=== PATIENT | male | born 1965 | race Caucasian/White ===

== ENCOUNTER 2018-01-29 10:24 | Emergency (ER) | payer OTHER ==
[2018-01-29] MEDS ORDERED: Sodium Chloride 0.9% 10 ML Syringe FLUSH PRN (10:46)
[2018-01-29] MEDS ORDERED: Aspirin 81 MG Tab.Chew PO ONE (10:46)
--- NOTE | 2018-01-29 10:50 | EDM.PDOC ---
ED HPI GENERAL MEDICAL PROBLEM - General Chief Complaint: Chest Pain Stated Complaint: CHEST PAIN Time Seen by Provider: 01/29/18 10:32 Source of Information: Reports: Patient History Limitations: Reports: No Limitations - History of Present Illness INITIAL COMMENTS - FREE TEXT/NARRATIVE: 52-year-old male presents for evaluation and treatment of chest pain. Patient reports the chest pain started yesterday. It has been intermittent. Describes as being primarily located in the center of his chest. No radiation to his back , neck, arms or jaw. He reports that he is belching more than normal. He denies any nausea, vomiting, shortness of breath, lightheadedness, dizziness or syncope. He is currently pain-free at this time. He tried some Prilosec without any relief. Reports about a year ago he did have a cardiac stress test. He was told that he had a previous IN at some point but his stress test was otherwise clear. He has no history himself of any cardiac issues. Reports significant family history of cardiac problems. Primary care provider is Dr. Blevins. Middle Chest Pain Score (Numeric/FACES): 2 - Related Data Allergies Allergy/AdvReac Type Severity Reaction Status Date / Time No Known Allergies Allergy Verified 01/29/18 10:32 Home Meds: Home Meds Fenofibric Acid (Choline) [Fenofibric Acid] 135 mg PO DAILY 01/29/18 [History] Hydrochlorothiazide [Microzide] 12.5 mg PO DAILY 01/29/18 [History] Losartan [Cozaar] 50 mg PO DAILY 01/29/18 [History] Metoprolol Succinate [Toprol XL] 25 mg PO DAILY 01/29/18 [History] Valsartan 160 mg PO DAILY 01/29/18 [History] atorvaSTATin [Lipitor] 20 mg PO BEDTIME 01/29/18 [History] Past Medical History Cardiovascular History: Reports: High Cholesterol, Hypertension - Past Surgical History Musculoskeletal Surgical History: Reports: Shoulder Surgery Social & Family History - Tobacco Use Smoking Status *Q: Never Smoker - Recreational Drug Use Recreational Drug Use: No ED ROS GENERAL - Review of Systems Review Of Systems: See Below Constitutional: Denies: Fever Respiratory: Denies: Shortness of Breath, Cough Cardiovascular: Reports: Chest Pain (central chest). Denies: Lightheadedness, Syncope GI/Abdominal: Reports: Other (reports increased belching). Denies: Abdominal Pain, Nausea, Vomiting Neurological: Denies: Dizziness ED EXAM, GENERAL - Physical Exam Exam: See Below Exam Limited By: No Limitations General Appearance: Alert, WD/WN, No Apparent Distress Ears: Normal External Exam Nose: Normal Inspection Throat/Mouth: Normal Inspection, Normal Lips, Normal Voice, No Airway Compromise Respiratory/Chest: No Respiratory Distress, Lungs Clear, Normal Breath Sounds Cardiovascular: Normal Peripheral Pulses, Regular Rate, Rhythm, No Murmur GI/Abdominal: Normal Bowel Sounds, Soft, Non-Tender Neurological: Alert, Oriented, Normal Cognition Psychiatric: Normal Affect, Normal Mood Skin Exam: Warm, Dry, Normal Color EKG INTERPRETATION EKG Date: 01/29/18 Time: 10:30 Rhythm: NSR Rate (Beats/Min): 58 [place]: Normal P-Wave: Present QRS: Normal ST-T: Normal QT: Prolonged (mimal Qtc 413) EKG Interpretation Comments: Consent bradycardia 58 bpm. Near Q waves in 3 and aVF, consider old inferior wall IN. She seemed minimally prolonged at a QTc of 413. No acute ischemic changes. Reviewed by myself and Dr. Mayfield. Course - Vital Signs Last Recorded V/S: Last Vital Signs Temp 97.8 F 01/29/18 10:27 Pulse 79 01/29/18 12:58 Resp 16 01/29/18 12:58 BP 153/88 H 01/29/18 10:27 Pulse Ox 98 01/29/18 12:58 - Orders/Labs/Meds Orders: Active Orders 24 hr Category Date Time Status Cardiac Monitoring [RC] . DIRECTED Care 01/29/18 10:46 Active EKG 12 Lead [EKG Documentation Completion] [RC] STAT Care 01/29/18 10:45 Active Peripheral IV Care [RC] . DIRECTED Care 01/29/18 10:46 Active Chest 1V Frontal [CR] Stat Exams 01/29/18 10:46 Taken Peripheral IV Insertion Adult [OM.PC] Routine Oth 01/29/18 10:45 Ordered Labs: Laboratory Tests 01/29/18 01/29/18 Range/Units 10:55 10:55 WBC 5.27 (4.23-9.07) K/mm3 RBC 5.34 (4.63-6.08) M/mm3 Hgb 16.8 (13.7-17.5) gm/L Hct 47.1 (40.1-51.0) % MCV 88.2 (79.0-92.2) fl MCH 31.5 (25.7-32.2) pg MCHC 35.7 H (32.2-35.5) g/dl RDW Std Deviation 41.7 (35.1-43.9) fL Plt Count 214 (163-337) K/mm3 MPV 10.2 (9.4-12.3) fl Neut % (Auto) 57.8 (34.0-67.9) % Lymph % (Auto) 30.6 (21.8-53.1) % [place] % (Auto) 8.0 (5.3-12.2) % Eos % (Auto) 2.8 (0.8-7.0) Baso % (Auto) 0.6 (0.1-1.2) % Neut # (Auto) 3.05 (1.78-5.38) K/mm3 Lymph # (Auto) 1.61 (1.32-3.57) K/mm3 [place] # (Auto) 0.42 (0.30-0.82) K/mm3 Eos # (Auto) 0.15 (0.04-0.54) K/mm3 Baso # (Auto) 0.03 (0.01-0.08) K/mm3 Sodium 140 (136-145) mEq/L Potassium 3.8 (3.5-5.1) mEq/L Chloride 103 (98-107) mEq/L Carbon Dioxide 27 (21-32) mEq/L Anion Gap 13.8 (5-15) BUN 17 (7-18) mg/dL Creatinine 1.3 (0.7-1.3) mg/dL Est Cr Clr Drug Dosing 64.96 mL/min Estimated GFR (MDRD) 58 (>60) mL/min BUN/Creatinine Ratio 13.1 L (14-18) Glucose 89 (74-106) mg/dL Calcium 9.4 (8.5-10.1) mg/dL Total Bilirubin 0.8 (0.2-1.0) mg/dL AST 21 (15-37) U/L ALT 38 (16-63) U/L Alkaline Phosphatase 50 (46-116) U/L CK-MB (CK-2) 2.0 (0-3.6) ng/ml Troponin I < 0.017 (0.00-0.056) ng/mL C-Reactive Protein < 0.2 (<1.0) mg/dL Total Protein 7.5 (6.4-8.2) g/dl Albumin 4.3 (3.4-5.0) g/dl Globulin 3.2 gm/dL Albumin/Globulin Ratio 1.3 (1-2) Lipase 176 (73-393) U/L Meds: Medications Discontinued Medications Generic Name Dose Route Start Last Admin Trade Name Freq PRN Reason Stop Dose Admin Aspirin 324 mg 01/29/18 10:46 01/29/18 10:58 Aspirin PO 01/29/18 10:47 324 mg ONETIME ONE Administration Sodium Chloride 10 ml 01/29/18 10:46 01/29/18 10:59 Saline Flush FLUSH 10 ml ASDIRECTED PRN Administration Keep Vein Open - Radiology Interpretation Free Text/Narrative:: Chest x-ray shows no acute intrathoracic process. - Re-Assessments/Exams Free Text/Narrative Re-Assessment/Exam: 01/29/18 12:43 I reviewed the labs, ekg and imaging with the patient. Agree that this is likely reflux. Offered patient medication such as GI cocktail but he feels comfortable going home at this point. Will discharge home. Discharge instructions as documented. Departure - Departure Time of Disposition: 12:47 Disposition: Home, Self-Care 01 Condition: Good Clinical Impression: GERD (gastroesophageal reflux disease) Instructions: Gastroesophageal Reflux Disease, Adult Referrals: Cahi Perez MD [Primary Care Provider] - Forms: ED Department Discharge Additional Instructions: Recommend continuing the Prilosec. may also try something like Zantac, Tums or Rolaids for more immediate relief. Recommend avoiding spicy foods and alcohol. Follow-up with her primary care provider within 2 weeks for recheck of your symptoms. Please return to the ER if your symptoms change or worsen. - My Orders Last 24 Hours: My Active Orders 01/29/18 10:45 EKG 12 Lead [EKG Documentation Completion] [RC] STAT Peripheral IV Insertion Adult [OM.PC] Routine 01/29/18 10:46 Cardiac Monitoring [RC] . DIRECTED Peripheral IV Care [RC] . DIRECTED Chest 1V Frontal [CR] Stat - Assessment/Plan Last 24 Hours: My Active Orders 01/29/18 10:45 EKG 12 Lead [EKG Documentation Completion] [RC] STAT Peripheral IV Insertion Adult [OM.PC] Routine 01/29/18 10:46 Cardiac Monitoring [RC] . DIRECTED Peripheral IV Care [RC] . DIRECTED Chest 1V Frontal [CR] Stat
--- NOTE | 2018-02-01 08:36 | CR ---
Chest: Portable view of the chest was obtained. Comparison: No prior chest x-ray. Heart size and mediastinum are normal. Lungs are clear. Bony structures are grossly intact. Previous right shoulder surgery is seen. Impression: 1. Nothing acute is seen on portable chest x-ray. Diagnostic code #1
== END 2018-01-29 12:59 | disposition home or self-care (01) ==
LOC: JD.ED 10:24
DX: K21.9 Gastro-esophageal reflux disease without esophagitis (principal); I10 Essential (primary) hypertension; E78.00 Pure hypercholesterolemia, unspecified; Z79.899 Other long term (current) drug therapy
CPT/HCPCS: 36415; 71045; 80053; 82553; 83690; 84484; 85025; 86140; 93005; 99285; A9270; J7050; 93010; 99284

== ENCOUNTER 2020-01-23 10:01 | Emergency (ER) | payer BC, OTHER ==
[2020-01-23] MEDS ORDERED: Ondansetron 4 MG/2 ML SDV IVPUSH ONE (10:29)
[2020-01-23] MEDS ORDERED: Sodium Chloride 0.9% 10 ML Syringe FLUSH PRN (10:29)
[2020-01-23] MEDS ORDERED: HYDROmorphone 0.5 MG/0.5 ML Syringe IVPUSH ONE (10:30)
[2020-01-23] MEDS ORDERED: Sodium Chloride 0.9% 1,000 ML IV SCH (10:30)
[2020-01-23] MEDS ORDERED: Ketorolac 30 MG/ML SDV IVPUSH ONE (10:30)
--- NOTE | 2020-01-23 11:01 | EDM.PDOC ---
ED HPI GENERAL MEDICAL PROBLEM - General Chief Complaint: Flank Pain Stated Complaint: BACK PAIN Time Seen by Provider: 01/23/20 10:19 Source of Information: Reports: Patient History Limitations: Reports: No Limitations - History of Present Illness INITIAL COMMENTS - FREE TEXT/NARRATIVE: The patient presents with right flank pain that radiates to his right abdomen. This started last night. The pain is constant and severe. He has nausea with it and he got diaphoretic. He has a history of back troubles. Tylenol or motrin did not help with the pain. He has no history kidney stones. He has no dysuria or hematuria. He still has an appendix. He has no fever, chills, cough, congestion, runny nose, chest pain or shortness of breath. Onset: Sudden Duration: Day(s): (last night) Location: Reports: Abdomen, Back Quality: Reports: Sharp Severity: Moderate Improves with: Reports: None Worsens with: Reports: None Associated Symptoms: Reports: Nausea/Vomiting. Denies: Chest Pain, Cough, Fever/Chills, Headaches, Shortness of Breath Right Flank Pain Score (Numeric/FACES): 9 - Related Data Allergies Allergy/AdvReac Type Severity Reaction Status Date / Time No Known Allergies Allergy Verified 01/23/20 10:12 Home Meds: Home Meds Fenofibric Acid (Choline) [Fenofibric Acid] 135 mg PO DAILY 01/29/18 [History] Losartan [Cozaar] 50 mg PO DAILY 01/29/18 [History] Metoprolol Succinate [Toprol XL] 25 mg PO DAILY 01/29/18 [History] Valsartan 160 mg PO DAILY 01/29/18 [History] atorvaSTATin [Lipitor] 20 mg PO BEDTIME 01/29/18 [History] hydroCHLOROthiazide [Microzide] 12.5 mg PO DAILY 01/29/18 [History] Cyclobenzaprine [Flexeril] 10 mg PO TID PRN #20 tab 01/23/20 [Rx] Past Medical History Cardiovascular History: Reports: High Cholesterol, Hypertension - Past Surgical History Musculoskeletal Surgical History: Reports: Shoulder Surgery Social & Family History - Tobacco Use Smoking Status *Q: Never Smoker Second Hand Smoke Exposure: No - Caffeine Use Caffeine Use: Reports: None - Recreational Drug Use Recreational Drug Use: No ED ROS GENERAL - Review of Systems Review Of Systems: See Below Constitutional: Reports: No Symptoms HEENT: Reports: No Symptoms Respiratory: Reports: No Symptoms Cardiovascular: Reports: No Symptoms Endocrine: Reports: No Symptoms GI/Abdominal: Reports: Abdominal Pain, Nausea. Denies: Diarrhea, Vomiting : Reports: No Symptoms Musculoskeletal: Reports: Back Pain Skin: Reports: No Symptoms Neurological: Reports: No Symptoms ED EXAM, GI/ABD - Physical Exam Exam: See Below Exam Limited By: No Limitations General Appearance: Alert, No Apparent Distress Ears: Normal External Exam Nose: Normal Inspection Head: Atraumatic, Normocephalic Neck: Normal Inspection Respiratory/Chest: No Respiratory Distress, Lungs Clear, Normal Breath Sounds Cardiovascular: Regular Rate, Rhythm, No Edema, No Murmur GI/Abdominal Exam: Soft, No Organomegaly, No Mass, Tender (Mild tednerness to the right lower abdomen) Back Exam: CVA Tenderness (R) Extremities: Normal Inspection Neurological: Alert, Oriented, No Motor/Sensory Deficits Course - Vital Signs Last Recorded V/S: Last Vital Signs Temp 96.9 F 01/23/20 10:11 Pulse 74 01/23/20 10:11 Resp 16 01/23/20 10:11 BP 150/79 H 01/23/20 10:11 Pulse Ox 97 01/23/20 10:11 - Orders/Labs/Meds Orders: Active Orders 24 hr Category Date Time Status Peripheral IV Care [RC] . DIRECTED Care 01/23/20 10:30 Active Sodium Chloride 0.9% [Normal Saline] 1,000 ml Med 01/23/20 10:30 Active IV ASDIRECTED Sodium Chloride 0.9% [Saline Flush] Med 01/23/20 10:29 Active 10 ml FLUSH ASDIRECTED PRN ED Antiemetic Medication Reflex [OM.PC] Stat Oth 01/23/20 10:29 Ordered Peripheral IV Insertion Adult [OM.PC] Stat Oth 01/23/20 10:29 Ordered Medication Orders Sodium Chloride (Normal Saline) 1,000 mls @ 125 mls/hr IV ASDIRECTED OVIDIO Last Admin: 01/23/20 10:44 Dose: 125 mls/hr Documented by: PATRICIA Sodium Chloride (Saline Flush) 10 ml FLUSH ASDIRECTED PRN PRN Reason: Keep Vein Open Last Admin: 01/23/20 10:46 Dose: 10 ml Documented by: PATRICIA Labs: Laboratory Tests 01/23/20 01/23/20 01/23/20 Range/Units 10:40 10:40 12:10 WBC 5.53 (4.23-9.07) K/mm3 RBC 5.31 (4.63-6.08) M/mm3 Hgb 16.4 (13.7-17.5) gm/dl Hct 47.2 (40.1-51.0) % MCV 88.9 (79.0-92.2) fl MCH 30.9 (25.7-32.2) pg MCHC 34.7 (32.2-35.5) g/dl RDW Std Deviation 42.3 (35.1-43.9) fL Plt Count 185 (163-337) K/mm3 MPV 10.7 (9.4-12.3) fl Neut % (Auto) 77.3 H (34.0-67.9) % Lymph % (Auto) 15.2 L (21.8-53.1) % [place] % (Auto) 5.8 (5.3-12.2) % Eos % (Auto) 1.1 (0.8-7.0) Baso % (Auto) 0.4 (0.1-1.2) % Neut # (Auto) 4.28 (1.78-5.38) K/mm3 Lymph # (Auto) 0.84 L (1.32-3.57) K/mm3 [place] # (Auto) 0.32 (0.30-0.82) K/mm3 Eos # (Auto) 0.06 (0.04-0.54) K/mm3 Baso # (Auto) 0.02 (0.01-0.08) K/mm3 Sodium 137 (136-145) mEq/L Potassium 3.8 (3.5-5.1) mEq/L Chloride 103 (98-107) mEq/L Carbon Dioxide 22 (21-32) mEq/L Anion Gap 15.8 H (5-15) BUN 19 H (7-18) mg/dL Creatinine 1.1 (0.7-1.3) mg/dL Est Cr Clr Drug Dosing 74.98 mL/min Estimated GFR (MDRD) > 60 (>60) mL/min BUN/Creatinine Ratio 17.3 (14-18) Glucose 110 H (74-106) mg/dL Calcium 8.8 (8.5-10.1) mg/dL Total Bilirubin 0.8 (0.2-1.0) mg/dL AST 24 (15-37) U/L ALT 33 (16-63) U/L Alkaline Phosphatase 40 L (46-116) U/L Total Protein 6.9 (6.4-8.2) g/dl Albumin 4.2 (3.4-5.0) g/dl Globulin 2.7 gm/dL Albumin/Globulin Ratio 1.6 (1-2) Lipase 95 (73-393) U/L Urine Color Dark yellow (Yellow) Urine Appearance Clear (Clear) Urine pH 5.5 (5.0-8.0) Ur Specific [place] > or = 1.030 (1.005-1.030) Urine Protein Negative (Negative) Urine Glucose (UA) Negative (Negative) Urine Ketones Negative (Negative) Urine Occult Blood Negative (Negative) Urine Nitrite Negative (Negative) Urine Bilirubin Negative (Negative) Urine Urobilinogen 0.2 (0.2-1.0) Ur Leukocyte Esterase Negative (Negative) Urine RBC 0-5 (0-5) /hpf Urine WBC 0-5 (0-5) /hpf Ur Squamous Epith Cells 0-5 (0-5) /hpf Urine Bacteria Few (FEW) /hpf Urine Mucus Many H (FEW) /hpf Meds: Medications Generic Name Dose Route Start Last Admin Trade Name Freq PRN Reason Stop Dose Admin Sodium Chloride 1,000 mls @ 125 mls/hr 01/23/20 10:30 01/23/20 10:44 Normal Saline IV 125 mls/hr ASDIRECTED OVIDIO Administration Sodium Chloride 10 ml 01/23/20 10:29 01/23/20 10:46 Saline Flush FLUSH 10 ml ASDIRECTED PRN Administration Keep Vein Open Discontinued Medications Generic Name Dose Route Start Last Admin Trade Name Freq PRN Reason Stop Dose Admin Hydromorphone HCl 0.5 mg 01/23/20 10:30 01/23/20 10:45 Dilaudid IVPUSH 01/23/20 10:31 0.5 mg ONETIME ONE Administration Ketorolac Tromethamine 30 mg 01/23/20 10:30 01/23/20 10:44 Toradol IVPUSH 01/23/20 10:31 30 mg ONETIME ONE Administration Ondansetron HCl 4 mg 01/23/20 10:29 01/23/20 10:44 Zofran IVPUSH 01/23/20 10:30 4 mg ONETIME ONE Administration - Re-Assessments/Exams Free Text/Narrative Re-Assessment/Exam: 01/23/20 11:03 I ordered an IV NS at 125mL/hr, dilaudid 0.5mg IV, toradol 30mg IV, zofran 4mg IV, labs, UA and a CT of the abdomen and pelvis without contrast to look for a kidney stone. 01/23/20 13:11 His CBC and CMP look good. His UA shows no UTI. His CT shows no kidney stone. I feel this is musckuloskeletal. I will get him on some flexeril. Departure - Departure Time of Disposition: 13:15 Disposition: Home, Self-Care 01 Condition: Good Clinical Impression: Right low back pain Qualifiers: Chronicity: acute Sciatica presence: without sciatica Qualified Code(s): M54.5 - Low back pain - Discharge Information *PRESCRIPTION DRUG MONITORING PROGRAM REVIEWED*: Not Applicable *COPY OF PRESCRIPTION DRUG MONITORING REPORT IN PATIENT ALVARO: Not Applicable Prescriptions: Cyclobenzaprine [Flexeril] 10 mg PO TID PRN #20 tab PRN Reason: Pain Referrals: Chai Perez MD [Primary Care Provider] - 1 Week Forms: ED Department Discharge Additional Instructions: Ice your back for 15 minutes 3 times per day for 2 days. Take motrin or tylenol for pain. If that does not help, try the flexeril every 8 hours. Please return if you are worse. Sepsis Event Note (ED) - Evaluation Sepsis Screening Result: No Definite Risk - Focused Exam Vital Signs: Vital Signs Temp Pulse Resp BP Pulse Ox 01/23/20 10:11 96.9 F 74 16 150/79 H 97 - My Orders Last 24 Hours: My Active Orders 01/23/20 10:29 Sodium Chloride 0.9% [Saline Flush] 10 ml FLUSH ASDIRECTED PRN ED Antiemetic Medication Reflex [OM.PC] Stat Peripheral IV Insertion Adult [OM.PC] Stat 01/23/20 10:30 Peripheral IV Care [RC] . DIRECTED Sodium Chloride 0.9% [Normal Saline] 1,000 ml IV ASDIRECTED - Assessment/Plan Last 24 Hours: My Active Orders 01/23/20 10:29 Sodium Chloride 0.9% [Saline Flush] 10 ml FLUSH ASDIRECTED PRN ED Antiemetic Medication Reflex [OM.PC] Stat Peripheral IV Insertion Adult [OM.PC] Stat 01/23/20 10:30 Peripheral IV Care [RC] . DIRECTED Sodium Chloride 0.9% [Normal Saline] 1,000 ml IV ASDIRECTED
--- NOTE | 2020-01-23 11:40 | CT ---
CT abdomen and pelvis Technique: Multiple axial sections were obtained from above the dome of the diaphragm inferiorly through the pubic symphysis. Intravenous contrast and oral contrast not utilized. Study has been performed as a ureteral stone protocol. Findings: Right and left ureters show no dilatation. No abnormal calcifications are seen along the course of the ureters. No renal calculi seen on the right side. Small nonobstructing stone is noted within the left kidney. Visualized lung bases show nothing acute. Liver shows no focal parenchymal abnormality. Spleen appears within normal limits. Adrenal glands show no nodule. Pancreas is normal. Gallbladder contains no calcified gallstones. Aorta shows no aneurysm. No retroperitoneal adenopathy or mesenteric abnormalities are seen. Appendix is seen which is normal. No pelvic mass or adenopathy is seen. No free fluid or inflammatory change is appreciated. Bone window settings were reviewed which shows slight degenerative change scattered within the spine. Impression: 1. Single nonobstructing small stone within the left kidney. No ureteral dilatation or ureteral stone is seen. 2. Nothing acute is appreciated on noncontrast CT study of the abdomen and pelvis. Diagnostic code #2 This report was dictated in MDT
== END 2020-01-23 13:20 | disposition home or self-care (01) ==
LOC: JD.ED 10:01
DX: M54.5 Low back pain (principal); I10 Essential (primary) hypertension; Z79.899 Other long term (current) drug therapy
CPT/HCPCS: 36415; 74176; 80053; 81001; 83690; 85025; 96361; 96374; 96375; 99284; J1170; J1885; J2405; J7030